=== PATIENT | male | born 1970 | race Caucasian/White ===

== ENCOUNTER → 2017-10-07 | Outpatient (CLI) | payer OTHER ==
[2017-10-07 17:35] LABS: ALBUMIN 4.5 gm/dl (3.4-5.0); ALT/SGPT 30 U/L (12-78); BLOOD UREA NITROGEN 14 mg/dl (7-18); CALCIUM 9.2 mg/dl (8.5-10.1); CARBON DIOXIDE 29 mmol/L (21-32); CREATININE 1.22 mg/dl (0.60-1.40); GLUCOSE 100 mg/dl (70-99); POTASSIUM 3.4 mmol/L (3.5-5.1); SODIUM 140 mmol/L (136-145)
[2017-10-07 17:46] LABS: ALKALINE PHOSPHATASE 92 U/L (45-117); AST/SGOT 21 U/L (15-37); TOTAL PROTEIN 8.3 gm/dl (6.4-8.2)
== END | disposition home or self-care (01) ==
LOC: C.LABBC 15:22
PROVIDERS: ATTEND Family Medicine Adult Medicine
DX: F41.9 Anxiety disorder, unspecified (principal)